=== PATIENT | female | born 1960 | race Caucasian/White ===

== ENCOUNTER 2017-09-08 21:12 | Emergency (ER) | END 2017-09-09 00:01 | disposition home or self-care (01) ==

== ENCOUNTER 2018-08-01 22:17 | Emergency (ER) | payer OTHER ==
[~2018-08-01] VITALS: Ht 162.6 cm; Wt 60.2 kg
[2018-08-01 22:19] VITALS: Ht 162.6 cm; Wt 60.2 kg
[2018-08-02] MEDS ORDERED: AMLODIPINE 5 MG TAB PO ONE (01:30)
[2018-08-02] MEDS ORDERED: AMLO-147 PO (02:38)
--- NOTE | 2018-08-02 02:45 | ERD ---
ER Documentation Chief Complaint Chief Complaint ringing in ears and htn also complaining of difficulty swallowing. HPI This is a 58-year-old female comes in complaining of elevation in blood pressure. She also says she has chronic tinnitus and when her blood pressure goes higher tenderness gets worse. She denies any headache nausea vomiting fevers chills or any focal neurologic complaints. She denies any other current issues. Denies chest pain. Denies any recent or remote head trauma. ROS All systems reviewed and are negative except as per history of present illness. Medications Home Meds Active Scripts Amlodipine Besylate* (Amlodipine Besylate*) 10 Mg Tablet, 10 MG PO DAILY, #30 TAB Prov:CARLOS DIEGO 08/02/18 Reported Medications [none] Unknown Strength No Conflict Check 09/09/17 Allergies Allergies: Coded Allergies: Penicillins (Verified Allergy, Unknown, rash, 09/08/17) PMhx/Soc History of Surgery: Yes ( x1) Anesthesia Reaction: No Hx Neurological Disorder: No Hx Respiratory Disorders: No Hx Cardiac Disorders: Yes (HTN) Hx Psychiatric Problems: No Hx Miscellaneous Medical Probl: No Hx Alcohol Use: No Hx Substance Use: No Hx Tobacco Use: No Smoking Status: Never smoker Physical Exam Vitals Vital Signs Date Temp Pulse Resp B/P (MAP) Pulse Ox O2 O2 Flow FiO2 Time Delivery Rate 08/01/18 98.1 65 18 148/90 100 22:19 (109) Physical Exam Const: No acute distress Head: Atraumatic Eyes: Normal Conjunctiva ENT: Normal External Ears, Nose and Mouth. Neck: Full range of motion. No meningismus. Resp: Clear to auscultation bilaterally Cardio: Regular rate and rhythm, no murmurs Abd: Soft, non tender, non distended. Normal bowel sounds Skin: No petechiae or rashes Back: No midline or flank tenderness Ext: No cyanosis, or edema Neur: Awake and alert Psych: Normal Mood and Affect Results 24 hrs Current Medications Medications Dose Sig/Rafa Start Time Status Last (Trade) Ordered Route PRN Stop Time Admin Dose Reason Admin Amlodipine 5 mg ONCE ONCE 08/02/18 DC 08/02/18 Besylate PO 01:30 02:38 (Norvasc) 08/02/18 01:31 Procedures/MDM Medical decision making: Patient's blood pressure was elevated (>120/80) but appears stable without evidence of hypertension emergency or urgency. The patient was counseled about the risks of hypertension and urged to pursue outpatient monitoring and therapy within a week with their primary care physician. Departure Diagnosis: Primary Impression: Hypertension Hypertension type: unspecified Qualified Codes: I10 - Essential (primary) hypertension Condition: Stable Patient Instructions: High Blood Pressure (Hypertension) CARLOS DIEGO Aug 02, 2018 02:45
[2018-08-02 02:47] VITALS: BP 148/72; PULSE 57; RESP 18
[2018-08-02] MEDS ORDERED: IBUP-1982 PO (02:49)
[2018-08-02] MEDS ORDERED: MULT-853 PO (02:49)
[2018-08-02] MEDS ORDERED: ASPI-535 PO (02:49)
[2018-08-02] MEDS ORDERED: FLUT16SP17 NASAL (02:49)
[2018-08-02] MEDS ORDERED: CLON-379 PO (02:49)
[2018-08-03] MEDS ORDERED: ACET650S9 PR (20:22)
[2018-08-03] MEDS ORDERED: KETOROLAC PO (20:22)
== END 2018-08-02 02:49 | disposition home or self-care (01) ==
LOC: E/R 22:17
DX: I10 Essential (primary) hypertension (principal); R40.2142 Coma scale, eyes open, spontaneous, at arrival to emergency department; R40.2252 Coma scale, best verbal response, oriented, at arrival to emergency department; R40.2362 Coma scale, best motor response, obeys commands, at arrival to emergency department
CPT/HCPCS: 93005; Z7502; Z7610

== ENCOUNTER 2018-08-03 18:48 | Emergency (ER) | payer OTHER ==
[~2018-08-03] VITALS: Ht 152.4 cm; Wt 60.7 kg
[~2018-08-03 18:48] MED LIST: AMLO-147 PO; ASPI-535 PO; CLON-379 PO; FLUT16SP17 NASAL; IBUP-1982 PO; MULT-853 PO
[2018-08-03 18:54] VITALS: Ht 152.4 cm; Wt 60.7 kg
[2018-08-03] MEDS ORDERED: SOD CHLORIDE 0.9% 1,000 ML IV STA (19:14)
[2018-08-03] MEDS ORDERED: METOPROLOL 5 MG INJ IV ONE (19:30)
[2018-08-03] MEDS ORDERED: KETOROLAC PO (20:22)
[2018-08-03] MEDS ORDERED: ACET650S9 PR (20:22)
--- NOTE | 2018-08-03 21:04 | ERD ---
ER Documentation Chief Complaint Chief Complaint possible allergic reaction from amlodipine. pt states throat is closing SOB HPI 58-year-old female with a history of hypertension normally on clonidine presenting with complaints of pulsating in her left neck, pain in her throat, as well as shakiness that started today. Patient states that she was here 2 days ago for chronic tinnitus that she has in her left ear that was worse. She came in for evaluation and was noted to have high blood pressure. For this reason she was prescribed amlodipine. Patient took her first dose of amlodipine today and her symptoms started after this. She is afraid that she is having an allergic reaction to amlodipine. She denies any chest pain or shortness of breath. She denies any rashes. Her main complaint is the pulsating in her left neck that she can feel. Per her son at bedside, he checked her heart rate at home and it was very high compared to his. No fevers or chills. No other associated symptoms. No dizziness, headache, focal weakness or numbness. ROS All systems reviewed and are negative except as per history of present illness. Medications Home Meds Active Scripts Amlodipine Besylate* (Amlodipine Besylate*) 10 Mg Tablet, 10 MG PO DAILY, #30 TAB Prov:CARLOS DIEGO 08/02/18 Reported Medications [Ketorolac] No Conflict Check, 30 MG PO DAILY for EAR 08/03/18 Acetaminophen* (Acephen*) 650 Mg Supp.rect, 650 MG MS Q4H PRN for PAIN AND OR ELEVATED TEMP, SUPP.RECT 08/03/18 Fluticasone Propionate* (Fluticasone Propionate* Nasal) 50 Mcg/Jelm - 16 Gm Jelm.susp, 1 SPRAY NASAL BID, #1 BOTTLE TO EACH NOSTRIL 08/02/18 Multivits-Min/Iron/FA/Lutein (Centrum Silver Women Tablet) 1 Each Tablet, 1 EACH PO DAILY, TAB 08/02/18 Ibuprofen* (Ibuprofen*) 200 Mg Capsule, 200 MG PO QID PRN for PAIN, CAP 08/02/18 Aspirin Ec (Aspir 81) 81 Mg Tablet.dr, 81 MG PO DAILY, #30 TAB 08/02/18 Clonidine Hcl* (Clonidine Hcl*) 0.1 Mg Tab, 0.1 MG PO Q6, TAB 08/02/18 Discontinued Reported Medications [none] Unknown Strength No Conflict Check 09/09/17 Allergies Allergies: Coded Allergies: Penicillins (Unverified Allergy, Unknown, rash, 08/03/18) PMhx/Soc History of Surgery: Yes ( x1) Anesthesia Reaction: No Hx Neurological Disorder: No Hx Respiratory Disorders: No Hx Cardiac Disorders: Yes (HTN) Hx Psychiatric Problems: No Hx Miscellaneous Medical Probl: No Hx Alcohol Use: No Hx Substance Use: No Hx Tobacco Use: No Smoking Status: Never smoker FmHx Family History: No diabetes Physical Exam Vitals Vital Signs Date Temp Pulse Resp B/P (MAP) Pulse Ox O2 O2 Flow FiO2 Time Delivery Rate 08/03/18 98.0 87 20 127/79 100 Room Air 21:52 (95) 08/03/18 89 19 137/77 100 Room Air 20:30 (97) 08/03/18 91 18 130/86 100 Room Air 20:00 (101) 08/03/18 117 19 140/73 100 Room Air 19:30 (95) 08/03/18 98.9 151 28 155/72 98 18:54 (99) Physical Exam Const: Appears anxious, nontoxic, no diaphoresis Head: Atraumatic Eyes: Normal Conjunctiva ENT: Normal External Ears, Nose and Mouth. Posterior oropharynx normal without edema or erythema. No stridor or drooling. Normal phonation. Neck: Full range of motion. No meningismus. No masses. Resp: Clear to auscultation bilaterally Cardio: Tachycardic with regular rhythm, no murmurs. 2+ distal pulses in all 4 extremities Abd: Soft, non tender, non distended. Normal bowel sounds Skin: No petechiae or rashes Back: No midline or flank tenderness Ext: No cyanosis, or edema Neur: Awake and alert, oriented, normal speech, cranial nerves intact, strength and sensations intact in all 4 extremities Psych: Somewhat anxious and shaky Result Diagram: 08/03/18192008/03/181920 Results 24 hrs Laboratory Tests Test 08/03/18 19:21 White Blood Count 11.5 10^3/ul Red Blood Count 4.73 10^6/ul Hemoglobin 14.3 g/dl Hematocrit 40.5 % Mean Corpuscular Volume 85.6 fl Mean Corpuscular Hemoglobin 30.2 pg Mean Corpuscular Hemoglobin Concent 35.3 g/dl Red Cell Distribution Width 11.9 % Platelet Count 260 10^3/UL Mean Platelet Volume 10.4 fl Immature Granulocytes % 0.300 % Neutrophils % 69.0 % Lymphocytes % 22.2 % Monocytes % 7.3 % Eosinophils % 0.9 % Basophils % 0.3 % Nucleated Red Blood Cells % 0.0 /100WBC Immature Granulocytes # 0.040 10^3/ul Neutrophils # 7.9 10^3/ul Lymphocytes # 2.6 10^3/ul Monocytes # 0.8 10^3/ul Eosinophils # 0.1 10^3/ul Basophils # 0.0 10^3/ul Nucleated Red Blood Cells # 0.0 10^3/ul Sodium Level 142 mmol/L Potassium Level 3.4 mmol/L Chloride Level 104 mmol/L Carbon Dioxide Level 25 mmol/L Anion Gap 13 Blood Urea Nitrogen 9 mg/dl Creatinine 0.48 mg/dl Est Glomerular Filtrat Rate mL/min > 60 mL/min Glucose Level 169 mg/dl Calcium Level 10.4 mg/dl Current Medications Medications Dose Sig/Rafa Start Time Status Last (Trade) Ordered Route PRN Stop Time Admin Dose Reason Admin Sodium 1,000 ml @ Q1H STAT 08/03/18 DC 08/03/18 Chloride 1,000 mls/hr IV 19:14 19:19 08/03/18 20:13 Metoprolol 5 mg ONCE ONCE 08/03/18 DC 08/03/18 Tartrate IV 19:30 19:38 (Lopressor) 08/03/18 19:31 Procedures/MDM EMERGENT LABS AND DIAGNOSTIC STUDIES: Lab Results above were reviewed and interpreted by me. CBC: no anemia or evidence of infection BMP: No e/o clinically significant electrolyte abnormality severe acidosis, alkalosis, renal failure, diabetic ketoacidosis Troponin within normal limits, not indicative of cardiac ischemia 12-lead EKG was interpreted by Jany Jones MD: Sinus tachycardia at 115 beats per minute Normal axis Normal intervals No acute ST or T wave changes suggestive of acute ischemia or STEMI. Radiology Results as interpreted by Radiology below were reviewed by Velasquez Jones MD: Chest x-ray shows no acute abnormalities Initial Nursing notes reviewed. Previous Medical Records requested via the Electronic Health Record. EMERGENCY DEPARTMENT COURSE / MEDICAL DECISION MAKING: Patient is presenting with symptomatic sinus tachycardia. Vitals were notable for tachycardia but otherwise unremarkable. I do not that she is having an anaphylactic reaction, rather she is having an adverse reaction to the amlodipine. Patient was treated with metoprolol 5 mg IV with improvement of her heart rate and her general symptoms. I have a low suspicion for dissection, acute coronary syndrome, pulmonary pathology such as PE or pneumothorax. Patient was observed in the ER for several hours with stabilization of her symptoms. I recommended she stop taking the amlodipine and follow-up with her primary care doctor to discuss other options for her hypertension. Patient feels comfortable with this discharge plan. Patient's blood pressure was elevated (>120/80) but appears stable without evidence of hypertensive emergency or urgency. The patient was counseled about the risks of hypertension and urged to pursue outpatient monitoring and therapy within a week with their primary care physician. Departure Diagnosis: Primary Impression: Palpitations Additional Impressions: Adverse drug reaction Encounter type: initial encounter Qualified Codes: T50.905A - Adverse effect of unspecified drugs, medicaments and biological substances, initial encounter Sinus tachycardia Condition: Stable Patient Instructions: Palpitations Referrals: DOCTOR,NOT ON STAFF (PCP) Additional Instructions: Gabbie mark shimon con lewis medico primario en 1 semana para lewis presion. Si liz sintomans empeoran, regresa aqui. HORACE JONES MD Aug 03, 2018 21:04
[2018-08-03 21:52] VITALS: BP 127/79; PULSE 87; RESP 20
== END 2018-08-03 21:54 | disposition home or self-care (01) ==
LOC: E/R 18:48
DX: R00.2 Palpitations (principal); R00.0 Tachycardia, unspecified; I10 Essential (primary) hypertension; T46.1X5A Adverse effect of calcium-channel blockers, initial encounter; T88.7XXA Unspecified adverse effect of drug or medicament, initial encounter; Y82.9 Unspecified medical devices associated with adverse incidents; Z79.82 Long term (current) use of aspirin
CPT/HCPCS: 36415; 71045; 80048; 85025; 93005; 96374; J7030; Z7502; Z7610